=== PATIENT | male | born 1985 | race Caucasian/White ===

== ENCOUNTER 2023-07-09 12:07 | Inpatient (IN) | payer MEDICAID ==
[~2023-07-09] VITALS: Ht 170.2 cm; Wt 110.7 kg
[2023-07-09 12:45] LABS: CALCIUM, SERUM 8.7 mg/dL (8.5-10.1); CARBON DIOXIDE 27 mmol/L (21-32); CHLORIDE 105 mmol/L (98-107); CREATININE 0.9 mg/dL (0.6-1.3); GLUCOSE 99 mg/dL (74-106); POTASSIUM 3.8 mmol/L (3.5-5.1); SODIUM SERUM 140 mmol/L (136-145); UREA NITROGEN, BLOOD 14 mg/dL (7-18)
[2023-07-09 13:46] LABS: BASOPHILS % (AUTO) 0.4 % (0.0-2.0); EOSINOPHILS % (AUTO) 0.1 % (0.0-6.0); HEMATOCRIT 46 % (39-51); HEMOGLOBIN 15.6 g/dL (13.5-17.5); LYMPHOCYTES # (AUTO) 1.2 K/uL (0.8-4.8); LYMPHOCYTES % (AUTO) 15.8 % (20.0-44.0); MEAN CORPUSCULAR HEMOGLOBIN 29 PG (26.0-33.0); MEAN CORPUSCULAR HGB CONC 34 g/dl (31.0-36.0); MEAN CORPUSCULAR VOLUME 84 fL (80-96); MONOCYTES # (AUTO) 0.5 K/uL (0.1-1.30); MONOCYTES % (AUTO) 6.6 % (2.0-12.0); NEUTROPHILS # (AUTO) 5.9 K/uL (1.8-8.9); NEUTROPHILS % (AUTO) 77.1 % (43.0-81.0); PLATELET COUNT (AUTO) 245 K/uL (150-450); RED BLOOD CELL COUNT(AUTO) 5.47 MIL/uL (4.5-6.0); RED CELL DISTRIBUTION WIDTH 14.8 % (11.5-15.0); WHITE BLOOD COUNT (AUTO) 7.6 K/uL (4.3-11.0)
[2023-07-09] MEDS ORDERED: ASPIRIN 81 MG TAB.CHEW ONE (13:59)
[2023-07-09] MEDS: ASPIRIN 81 MG TAB.CHEW PO ONE (14:07)
[2023-07-09] MEDS ORDERED: ONDANSETRON HCL/PF 4 MG/2 ML VIAL IVP PRN (14:30)
[2023-07-09] MEDS ORDERED: ACETAMINOPHEN 325 MG TABLET PO PRN (14:30)
[2023-07-09 15:45] VITALS: TEMP 98.2; O2SAT 99
[2023-07-09] MEDS ORDERED: IOHEXOL-350 100 ML VIAL IV ONE (15:57)
[2023-07-09] MEDS ORDERED: CT SWABBABLE VALVE TRANS SET 1 EA INFUS.SET MC ONE (15:57)
[2023-07-09] MEDS ORDERED: IV NS 0.9% 250 ML IV ONE (15:57)
[2023-07-09] MEDS: METOPROLOL TARTRATE INJ 5 MG/5 ML AMPUL IVP PRN (16:00)
[2023-07-09] MEDS ORDERED: NITROGLYCERIN 0.4 MG/TAB BOTTLE ONE (16:09)
[2023-07-09] MEDS ORDERED: METOPROLOL TARTRATE INJ 5 MG/5 ML AMPUL ONE (16:10)
[2023-07-09 16:16] VITALS: BP 129/77
[2023-07-09] MEDS: NITROGLYCERIN 0.4 MG/TAB BOTTLE SL ONE (16:16)
[2023-07-09] MEDS ORDERED: MOUNJARO SQ (16:56)
[2023-07-09] MEDS ORDERED: METO25TA4 PO (16:56)
[2023-07-09] MEDS ORDERED: ATOR40TA PO (16:56)
[2023-07-09] MEDS ORDERED: METH5TAB6 PO (16:56)
[2023-07-09] MEDS ORDERED: EZET10TA16 PO (16:56)
[2023-07-09] MEDS ORDERED: CLOP75TA15 PO (16:56)
== END 2023-07-09 18:18 | disposition home or self-care (01) | DRG 199 ==
LOC: ER 12:15 → TELE 16:01
PROVIDERS: ADMIT Nurse Practitioner Acute Care; ATTEND Nurse Practitioner Acute Care
DX: I16.0 Hypertensive urgency (principal); D68.69 Other thrombophilia; R07.9 Chest pain, unspecified; I25.10 Atherosclerotic heart disease of native coronary artery without angina pectoris; E66.01 Morbid (severe) obesity due to excess calories; E78.5 Hyperlipidemia, unspecified; F41.9 Anxiety disorder, unspecified; I10 Essential (primary) hypertension; Z95.5 Presence of coronary angioplasty implant and graft; E05.90 Thyrotoxicosis, unspecified without thyrotoxic crisis or storm; Z91.199 Patient's noncompliance with other medical treatment and regimen due to unspecified reason
CPT/HCPCS: 36415; 71045-TC; 75574; 80048-TC; 84443-TC; 84484-TC; 85025-TC; G0378; J3490; J7050; Q9967